=== PATIENT | male | born 1990 | race Two or more races ===

== ENCOUNTER 2016-09-09 03:22 | Emergency (ER) | payer SELFPAY ==
[~2016-09-09] VITALS: Ht 180.3 cm; Wt 73.5 kg
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
[2016-09-09 05:06] VITALS: BP 128/80
[2016-09-09 05:07] VITALS: BP 128/80
== END 2016-09-09 05:08 | disposition home or self-care (01) ==
LOC: EMR 03:38
DX: F10.129 Alcohol abuse with intoxication, unspecified (principal); S09.8XXA Other specified injuries of head, initial encounter; Y04.2XXA Assault by strike against or bumped into by another person, initial encounter; Y92.511 Restaurant or cafe as the place of occurrence of the external cause; J45.909 Unspecified asthma, uncomplicated
CPT/HCPCS: 99284